=== PATIENT | male | born 1965 | race Caucasian/White ===

== ENCOUNTER 2022-08-31 22:21 | Outpatient (CLI) | payer OTHER | END 2022-08-31 23:59 | disposition EMS.NT | LOC: EMS 22:21 | DX: R58 Hemorrhage, not elsewhere classified (principal) ==

== ENCOUNTER 2022-09-01 11:08 | Outpatient (CLI) | payer OTHER | END 2022-09-01 11:09 | disposition home or self-care (01) | LOC: EMS 11:08 | DX: N99.820 Postprocedural hemorrhage of a genitourinary system organ or structure following a genitourinary system procedure (principal); R50.9 Fever, unspecified; N50.82 Scrotal pain | CPT/HCPCS: A0425; A0429 ==

== ENCOUNTER 2022-09-01 11:46 | Emergency (ER) | payer OTHER ==
[2022-09-01] MEDS ORDERED: PIPERACILLIN/TAZOBACTAM 3.375 GM in SODIUM CHLORIDE 0.9% MINIBAG 100 ML IV STA (11:53)
--- NOTE | 2022-09-01 11:56 | ED Physician Documentation ---
History of Present Illness - Stated complaint Stated Complaint: POSTOP COMPLICATION - History obtained from History obtained from: Patient, EMS - History of Present Illness Timing: Yesterday (Patient is a 56-year-old male brought in by EMS for swelling, erythema to the scrotum and bleeding that started yesterday. He states that he had a hydrocele surgery at [facility] with Dr. Eng on August 15. He states that since that time he did go back to the emergency department and w) Pain level max: 6 Pain level now: 5 - Additonal information Additional information: Patient is a 56-year-old male brought in by EMS for swelling, erythema to the scrotum and bleeding that started yesterday. He states that he had a hydrocele surgery at [facility] with Dr. Eng on August 15. He states that since that time he did go back to the emergency department and was diagnosed with cellulitis of the scrotum and started on Bactrim. He states he has been taking the Bactrim at home but is now developing fevers, worsening swelling and bleeding. Patient states Tmax 101 at home. He states that he did have a small amount of bleeding last night but the bleeding stopped by the time EMS arrived and so he stayed home. Increased bleeding again today so came to the emergency department. Review of Systems Constitutional: reports: Fever (101) Nose: denies: Rhinorrhea / runny nose, Congestion Respiratory: denies: Cough GI: denies: Abdominal Pain, Nausea, Vomiting, Diarrhea Skin: denies: Rash Musculoskeletal: denies: Neck pain, Back pain Neurologic: denies: Headache PD PAST MEDICAL HISTORY - Past Medical History Past Medical History: Yes Cardiovascular: Hypertension - Past Surgical History Past Surgical History: Yes /[employer] [place]: Other (hydrocele repair) - Present Medications Home Medications: Ambulatory Orders Medication Instructions Recorded Confirmed Sulfamethox/Trimeth 800/160 1 tab ORAL BID 09/01/22 09/01/22 [Bactrim Ds] amLODIPine [Norvasc] 10 mg PO DAILY 09/01/22 09/01/22 - Allergies Allergies/Adverse Reactions: Allergies Allergy/AdvReac Type Severity Reaction Status Date / Time No Known Drug Allergies Allergy Verified 09/01/22 11:58 - Living Situation Living Arrangement: reports: At home - Family History Family history: reports: Non contributory PD ED PE NORMAL - Vitals Vital signs reviewed: Yes - General General: Alert and oriented X 3, No acute distress - HEENT HEENT: Moist mucous membranes - Neck Neck: Supple, no meningeal sign - Cardiac Cardiac: RRR, Strong equal pulses - Respiratory Respiratory: No respiratory distress, Clear bilaterally - Abdomen Abdomen: Soft, Non tender, Non distended - Male Male : Other (Patient has a indurated, swollen, edematous and erythematous scrotum. There is bleeding from the midline. Small bleeding. The entire scrotum is very tender to the touch. No crepitus.) - Derm Derm: Warm and dry - Neuro Neuro: Alert and oriented X 3 Results - Vitals Vitals: Vital Signs - 24 hr 09/01/22 09/01/22 09/01/22 11:53 12:45 14:00 Temperature 37.1 C 35.9 C L Heart Rate 104 H 98 81 Respiratory 20 19 18 Rate Blood Pressure 158/84 H 142/63 H 123/87 H O2 Saturation 99 100 97 Oxygen O2 Source Room air - Labs Labs: Laboratory Tests 09/01/22 09/01/22 09/01/22 12:07 12:07 12:09 WBC 13.2 H RBC 4.13 L Hgb 11.5 L Hct 35.4 L MCV 85.7 MCH 27.8 MCHC 32.5 RDW 11.6 L Plt Count 430 MPV 9.7 Neut # (Auto) 10.2 H Lymph # (Auto) 1.8 [place] # (Auto) 0.9 Eos # (Auto) 0.2 Baso # (Auto) 0.1 Absolute Nucleated RBC 0.00 Nucleated RBC % 0.0 PT 13.4 H INR 1.2 APTT 30.1 Sodium Potassium Chloride Carbon Dioxide Anion Gap BUN Creatinine Estimated GFR (MDRD) Glucose Lactic Acid 1.7 Calcium Total Bilirubin AST ALT Alkaline Phosphatase Total Protein Albumin Globulin Albumin/Globulin Ratio Lipase Urine Color Urine Clarity Urine pH Ur Specific [place]asser Urine Protein Urine Glucose (UA) Urine Ketones Urine Occult Blood Urine Nitrite Urine Bilirubin Urine Urobilinogen Ur Leukocyte Esterase Ur Microscopic Review Urine Culture Comments 09/01/22 09/01/22 12:09 12:36 WBC RBC Hgb Hct MCV MCH MCHC RDW Plt Count MPV Neut # (Auto) Lymph # (Auto) [place] # (Auto) Eos # (Auto) Baso # (Auto) Absolute Nucleated RBC Nucleated RBC % PT INR APTT Sodium 136 Potassium 4.1 Chloride 103 Carbon Dioxide 24 Anion Gap 9.0 BUN 17 Creatinine 1.0 Estimated GFR (MDRD) 78 L Glucose 128 H Lactic Acid Calcium 9.3 Total Bilirubin 0.4 AST 14 ALT 22 Alkaline Phosphatase 59 Total Protein 8.1 Albumin 3.7 Globulin 4.4 H Albumin/Globulin Ratio 0.8 L Lipase 34 Urine Color YELLOW Urine Clarity CLEAR Urine pH 6.5 Ur Specific Sasser 1.020 Urine Protein NEGATIVE Urine Glucose (UA) NEGATIVE Urine Ketones NEGATIVE Urine Occult Blood NEGATIVE Urine Nitrite NEGATIVE Urine Bilirubin NEGATIVE Urine Urobilinogen 0.2 (NORMAL) Ur Leukocyte Esterase NEGATIVE Ur Microscopic Review NOT INDICATED Urine Culture Comments NOT INDICATED PD Medical Decision Making - ED course Complexity details: reviewed results, re-evaluated patient, considered differential, d/w patient, 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 Lux, urology at [facility] who recommends ER to ER transfer so that the patient can be evaluated in person at the [facility] emergency department. The patient was started on vancomycin and Zosyn. Dilaudid given. Imaging will be held until he is at [facility]. The patient has minimal bleeding currently from the scrotum. He was started on IV fluids as well. Discussed the case with Dr. Giron, emergency department physician who graciously accepts. COBRA forms completed. This document was made in part using voice recognition software. While efforts are made to proofread this document, sound alike and grammatical errors may occur. CBC shows a leukocytosis, 13,200. Mild anemia 11.5. Normal platelets. Coag studies are normal. Lactic acid is normal. Minimally elevated nonfasting glucose. Urinalysis is negative. Departure - Departure Disposition: 02 Transfer Acute Care Hosp Clinical Impression: Scrotal swelling, Cellulitis of scrotum Fever Qualifiers: Fever type: unspecified Qualified Code(s): R50.9 - Fever, unspecified Condition: Stable Discharge Date/Time: 09/01/22 15:16
[2022-09-01] MEDS ORDERED: SODIUM CHLORIDE 0.9% 1,000 ML IV STA (12:22)
[2022-09-01] MEDS ORDERED: VANCOMYCIN INJ 1.5 GM in SODIUM CHLORIDE 0.9% 500 ML IV STA (12:22)
[2022-09-01] MEDS ORDERED: HYDROmorphone 1 MG/ML CARPUJECT IVP STA (12:22)
--- NOTE | 2022-09-01 12:23 | XRAY Report ---
PROCEDURE: Chest 1 View X-Ray INDICATIONS: fever TECHNIQUE: One view of the chest was acquired. COMPARISON: None. FINDINGS: Surgical changes and devices: None. Lungs and pleura: No pleural effusions or pneumothorax. Lungs are clear. Mediastinum: Mediastinal contours appear normal. Heart size is normal. Bones and chest wall: No suspicious bony lesions. Overlying soft tissues appear unremarkable. IMPRESSION: No acute cardiopulmonary findings. Reviewed by: Marcin Schultz MD on 09/01/2022 11:21 AM MARISEL Approved by: Marcin Schultz MD on 09/01/2022 11:21 AM MARISEL Station ID: [id number]
[2022-09-01 12:34] LABS: BASOPHILS # (AUTO) 0.1 10^3/uL (0.0-0.1); BASOPHILS % (AUTO) 0.7 %; EOSINOPHILS # (AUTO) 0.2 10^3/uL (0.0-0.7); EOSINOPHILS % (AUTO) 1.1 %; HCT - HEMATOCRIT 35.4 % (42.0-52.0); HGB - HEMOGLOBIN 11.5 g/dL (14.0-18.0); LYMPHOCYTES # (AUTO) 1.8 10^3/uL (1.5-3.5); LYMPHOCYTES % (AUTO) 13.3 %; MEAN CORPUSCULAR HEMOGLOBIN 27.8 pg (27.0-31.0); MEAN CORPUSCULAR HGB CONC 32.5 g/dL (32.0-36.0); MEAN CORPUSCULAR VOLUME 85.7 fL (80.0-94.0); MEAN PLATELET VOLUME 9.7 fL (7.4-11.4); MONOCYTES # (AUTO) 0.9 10^3/uL (0.0-1.0); MONOCYTES % (AUTO) 6.8 %; NEUTROPHILS # (AUTO) 10.2 10^3/uL (1.5-6.6); NEUTROPHILS % (AUTO) 76.9 %; PLT - PLATELET COUNT 430 10^3/uL (130-450); RED BLOOD COUNT 4.13 10^6/uL (4.70-6.10); RED CELL DISTRIBUTION WIDTH 11.6 % (12.0-15.0); WHITE BLOOD COUNT 13.2 x10^3/uL (4.8-10.8)
[2022-09-01 12:35] LABS: ALBUMIN 3.7 g/dL (3.2-5.5); ALBUMIN/GLOBULIN RATIO 0.8 (1.0-2.2); BILIRUBIN,TOTAL 0.4 mg/dL (0.2-1.0); CALCIUM 9.3 mg/dL (8.5-10.3); POTASSIUM 4.1 mmol/L (3.5-5.0); TOTAL PROTEIN 8.1 g/dL (6.7-8.2)
[2022-09-01 12:38] LABS: INR 1.2 (0.8-1.2); PT - PROTHROMBIN TIME 13.4 secs (9.9-12.6)
[2022-09-01 12:45] LABS: PARTIAL THROMBOPLASTIN TIME 30.1 secs (24.9-33.3)
[2022-09-01 13:26] LABS: BILIRUBIN,URINE NEGATIVE (NEGATIVE); GLUCOSE, URINE (UA) NEGATIVE (NEGATIVE); KETONES,URINE (UA) NEGATIVE (NEGATIVE); LEUKOCYTE ESTERASE, URINE NEGATIVE (NEGATIVE); NITRITE,URINE NEGATIVE (NEGATIVE); OCCULT BLOOD,URINE NEGATIVE (NEGATIVE); PH,URINE 6.5 PH (5.0-7.5); PROTEIN,URINE NEGATIVE (NEGATIVE); UROBILINOGEN,URINE 0.2 (NORMAL) E.U./dL (NORMAL)
[2022-09-01 13:28] LABS: CLARITY,URINE CLEAR (CLEAR)
[2022-09-01 14:22] VITALS: BP 123/87
== END 2022-09-01 15:16 | disposition short-term general hospital (02) ==
LOC: ED 11:46
DX: N99.820 Postprocedural hemorrhage of a genitourinary system organ or structure following a genitourinary system procedure (principal); N49.2 Inflammatory disorders of scrotum
CPT/HCPCS: 36415; 71045; 80053; 81003; 83605; 83690; 85025; 85610; 85730; 87040; 96365; 96366; 96368; 96375; 99285; J1170; J3370; 81001; 87086